=== PATIENT | female | born 1940 | race Caucasian/White ===

== ENCOUNTER → 2016-12-14 | Outpatient (CLI) | payer MEDICARE ==
[~2016-12-14] MED LIST: LORAZEPAM0.5 MG PO
[2016-12-14 12:44] LABS: PROTHROMBIN TIME 10.8 SECONDS (9.0-12.4)
== END | disposition home or self-care (01) ==
LOC: LAB 02:07
PROVIDERS: Specialist
DX: E04.1 Nontoxic single thyroid nodule (principal); D68.69 Other thrombophilia; F41.9 Anxiety disorder, unspecified; Z90.49 Acquired absence of other specified parts of digestive tract; Z87.891 Personal history of nicotine dependence

== ENCOUNTER → 2021-05-18 | Day surgery (SDC) | payer MEDICARE ==
[~2021-05-18] VITALS: Ht 162.5 cm; Wt 59.0 kg
[~2021-05-18] MED LIST changes: +CENTRUM SILVER1 EAC1 PO; +CO Q-1050 M1 PO; +COLLAGEN PEPTIDE PO; +D3-200050 MCG PO; +FLAX SEED OIL1 EACH PO; +KRILL OIL 3501 EACH PO; +OMEGA 3 1,0001 EACH PO; +PROBIOTIC FORM1 EACH PO; +ZINC50 M4 PO
[2021-05-18 08:40] VITALS: BP 120/73
[2021-05-18 10:36] VITALS: BP 124/67
[2021-05-18 10:51] VITALS: BP 132/67
[2021-05-18 11:04] VITALS: BP 120/62
== END | disposition home or self-care (01) ==
LOC: SDC 05-13 09:30
PROVIDERS: ATTEND Ophthalmology
DX: H25.811 Combined forms of age-related cataract, right eye (principal); F41.9 Anxiety disorder, unspecified; F17.210 Nicotine dependence, cigarettes, uncomplicated; J44.9 Chronic obstructive pulmonary disease, unspecified; Z91.040 Latex allergy status; Z88.5 Allergy status to narcotic agent; Z79.899 Other long term (current) drug therapy; Z20.822 Contact with and (suspected) exposure to COVID-19

== ENCOUNTER 2023-07-04 11:48 | Inpatient (IN) | payer MEDICARE ==
[~2023-07-04] VITALS: Ht 165.1 cm; Wt 63.0 kg
[2023-07-04 12:02] VITALS: BP 103/47
[2023-07-04 12:56] LABS: BASO # 0.1 10*3/uL (0.0-0.1); BASO % 0.6 % (0.0-1.0); EOS # 0.3 10*3/uL (0.0-0.4); EOS % 3.1 % (1.0-4.0); HEMATOCRIT 45.8 % (37.0-47.0); LYMPH # 1.7 10*3/uL (1.3-4.4); LYMPH % 20.5 % (27.0-41.0); MEAN CELL VOLUME 94.4 fl (81.0-99.0); MEAN CORPUSCULAR HGB 30.9 pg (27.0-31.0); MEAN CORPUSCULAR HGB CONC 32.8 g/dl (33.0-37.0); MEAN PLATELET VOLUME 8.7 fl (9.6-12.3); MONO # 0.7 10*3/uL (0.1-1.0); NEUT # 5.6 10*3/uL (2.3-7.9); NEUT % 67.4 % (47.0-73.0); PLATELET COUNT AUTOMATED 311 10*3/uL (130-400); RED BLOOD COUNT 4.85 10*6/uL (4.10-5.10); RED CELL DISTRI WIDTH 12.2 % (0-14.5); WHITE BLOOD COUNT 8.3 10*3/uL (4.8-10.8)
[2023-07-04 13:07] LABS: ACT PARTIAL THROMBO TIME 24.4 SECONDS (20.0-32.1)
[2023-07-04 13:21] LABS: ALKALINE PHOSPHATASE 56 U/L (46-116); BUN 13 mg/dl (9-23); CHLORIDE 102 mmol/L (98-107); LIPASE 36 U/L (12-53); SGPT/ALT < 7 U/L (5-49); TOTAL PROTEIN 6.7 gm/dL (6.0-8.0)
[2023-07-04 18:48] VITALS: BP 121/61
[2023-07-04 20:00] VITALS: BP 134/53
[2023-07-05] VITALS (7 sets, daily range): BP systolic 106–129; BP diastolic 45–67
[2023-07-05 06:01] LABS: BASO % 0.5 % (0.0-1.0); EOS # 0.1 10*3/uL (0.0-0.4); EOS % 1.5 % (1.0-4.0); HEMATOCRIT 39.6 % (37.0-47.0); LYMPH # 2.1 10*3/uL (1.3-4.4); LYMPH % 25.4 % (27.0-41.0); MEAN CELL VOLUME 93.2 fl (81.0-99.0); MEAN CORPUSCULAR HGB 31.1 pg (27.0-31.0); MEAN CORPUSCULAR HGB CONC 33.3 g/dl (33.0-37.0); MEAN PLATELET VOLUME 9.2 fl (9.6-12.3); MONO # 0.9 10*3/uL (0.1-1.0); MONO % 11.2 % (3.0-9.0); NEUT % 61.2 % (47.0-73.0); PLATELET COUNT AUTOMATED 286 10*3/uL (130-400); RED BLOOD COUNT 4.25 10*6/uL (4.10-5.10); RED CELL DISTRI WIDTH 12.4 % (0-14.5); WHITE BLOOD COUNT 8.2 10*3/uL (4.8-10.8)
[2023-07-05 06:18] LABS: BILIRUBIN Negative (Negative); BLOOD Negative (Negative); CLARITY Clear (Clear); COLOR Yellow (Yellow); GLUCOSE Negative (Negative); KETONE Trace (Negative); LEUKO ESTERASE 1+ (Negative); NITRITE Negative (Negative); PH 7.5 (4.5-8.0); SPECIFIC GRAVITY >= 1.030 (1.001-1.030); UROBILINOGEN 0.2 E.U./dl (0.0-1.0)
[2023-07-05 06:39] LABS: VITAMIN D, 25-HYDROXY 61.1 ng/mL (30-100)
[2023-07-05 06:53] LABS: BUN 15 mg/dl (9-23); CHLORIDE 105 mmol/L (98-107); CHOLESTEROL 187 mg/dL (<200); FREE T4 0.99 ng/dl (0.89-1.76); LDL CHOLESTEROL 122 mg/dL (9-159); POTASSIUM 3.9 mmol/L (3.4-5.1); TRIGLYCERIDES 55 mg/dl (<150)
[2023-07-05 06:54] LABS: BACTERIA TRACE; HYALINE CAST 0-2; RBC 0-2 rbc/hpf (0-2)
[2023-07-06] VITALS: BP 104/55
[2023-07-06 02:45] VITALS: BP 96/46
[2023-07-06 05:30] LABS: BUN 20 mg/dl (9-23); CHLORIDE 107 mmol/L (98-107); POTASSIUM 3.8 mmol/L (3.4-5.1)
[2023-07-06 06:03] LABS: BASO % 0.5 % (0.0-1.0); EOS # 0.3 10*3/uL (0.0-0.4); EOS % 3.8 % (1.0-4.0); HEMATOCRIT 40.4 % (37.0-47.0); LYMPH # 1.6 10*3/uL (1.3-4.4); LYMPH % 19.6 % (27.0-41.0); MEAN CELL VOLUME 92.4 fl (81.0-99.0); MEAN CORPUSCULAR HGB 30.9 pg (27.0-31.0); MEAN CORPUSCULAR HGB CONC 33.4 g/dl (33.0-37.0); MONO # 0.9 10*3/uL (0.1-1.0); MONO % 11.5 % (3.0-9.0); NEUT # 5.2 10*3/uL (2.3-7.9); NEUT % 64.2 % (47.0-73.0); PLATELET COUNT AUTOMATED 262 10*3/uL (130-400); RED BLOOD COUNT 4.37 10*6/uL (4.10-5.10); RED CELL DISTRI WIDTH 12.2 % (0-14.5); WHITE BLOOD COUNT 8.2 10*3/uL (4.8-10.8)
[2023-07-06 08:00] VITALS: BP 119/57
[2023-07-06 12:00] VITALS: BP 125/62
[2023-07-06 16:00] VITALS: BP 135/58
[2023-07-06] MEDS ORDERED: AZITHROMYCIN500 M2 PO (16:02)
[2023-07-06] MEDS ORDERED: CEFTRIAXONE1 GM IJ (16:02)
[2023-07-06 20:00] VITALS: BP 128/57
[2023-07-07] VITALS: BP 128/59
== END 2023-07-07 08:00 | disposition short-term general hospital (02) | DRG 388 ==
LOC: ED 11:48 → EDHOLD 15:29 → 5E 15:29
PROVIDERS: Family Medicine; Student in an Organized Health Care Education/Training Program; ADMIT Internal Medicine; ATTEND Internal Medicine
PROC: 0D9670Z Drainage of Stomach with Drainage Device, Via Natural or Artificial Opening (ICD-10-PCS; 2023-07-04)
PROC: 0DJD8ZZ Inspection of Lower Intestinal Tract, Via Natural or Artificial Opening Endoscopic (ICD-10-PCS; principal; 2023-07-05)
DX: K56.699 Other intestinal obstruction unspecified as to partial versus complete obstruction (principal); J18.9 Pneumonia, unspecified organism; F41.9 Anxiety disorder, unspecified; Z66 Do not resuscitate; E55.9 Vitamin D deficiency, unspecified; R73.9 Hyperglycemia, unspecified; K63.9 Disease of intestine, unspecified; Z88.8 Allergy status to other drugs, medicaments and biological substances; Z79.899 Other long term (current) drug therapy; Z90.49 Acquired absence of other specified parts of digestive tract; Z90.710 Acquired absence of both cervix and uterus